=== PATIENT | male | born 1990 | race Caucasian/White ===

== ENCOUNTER 2018-09-24 20:17 | Inpatient (IN) ==
[2018-09-24 20:46] LABS: Basophils % 0.1 %; Eosinophils # 0.2 K/mcL (0.0-0.6); Eosinophils % 3.1 %; Hematocrit 47.1 % (37.5-50.1); Hemoglobin 15.6 g/dL (12.9-16.9); Immature Granulocytes % 0.4 % (0-4); Lymphocytes # 1.3 K/mcL (0.6-4.6); Lymphocytes % 18.4 %; Mean Corpuscular HGB Conc 33.1 g/dL (31.6-35.5); Mean Corpuscular Hemoglobin 32.8 pg (28.0-33.3); Mean Corpuscular Volume 98.9 fL (83.0-100.0); Mean Platelet Volume 10.1 fL (9.4-12.4); Monocytes % 15.2 %; Neutrophils # 4.3 K/mcL (1.6-8.9); Platelet Count 178 K/mcL (140-400); Red Blood Count 4.76 M/mcL (4.19-5.50); Red Cell Distribution Width 12.4 % (11.5-14.5); Segmented Neutrophils % 62.8 %
[2018-09-24 20:59] LABS: Acetaminophen < 10 mcg/mL (10-20); BUN/Creatinine Ratio 19 (6-26); Blood Urea Nitrogen 15 mg/dL (6-20); Calcium 9.5 mg/dL (8.6-10.3); Carbon Dioxide 24 mEq/L (23-29); Chloride 110 mEq/L (98-107); Ethanol < 10 mg/dL (Less than 10); Glucose 91 mg/dL (70-105); Osmolality,Calculated 296 (280-300); Salicylate < 2.5 mg/dL (15.0-30.0); Sodium 143 mEq/L (136-145); eGFR For Non-African Americans > 60 (> 60)
[2018-09-24 21:07] LABS: Bilirubin,Urine Negative (Negative); Blood,Urine Negative (Negative); Clarity,Urine Clear (Clear); Color,Urine Yellow (Yellow); Glucose,Urine (UA) Normal (Normal); Ketones,Urine Negative (Negative); Leukocyte Esterase,Urine Negative (Negative); Nitrite,Urine Negative (Negative); Protein,Urine Negative (Neg-Trace); Specific Gravity,Urine 1.015 (1.010-1.025); Urobilinogen,Urine Normal (Normal)
[2018-09-24 21:17] LABS: Amphetamine Screen,Urine Negative ng/mL (Cutoff=1000); Barbiturate Screen,Urine Negative ng/mL (Cutoff=200); Benzodiazepines Screen,Urine Negative ng/mL (Cutoff=200); Cannabinoid Screen,Urine Negative ng/mL (Cutoff = 50); Cocaine Screen,Urine Negative ng/mL (Cutoff= 300); Opiate Screen,Urine Negative ng/mL (Cutoff=300); Phencyclidine Screen,Urine Negative ng/mL (Cutoff=25)
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
[2018-09-25 01:56] LABS: Alanine Aminotransferase 23 Units/L (7-52); Albumin 4.5 g/dL (3.5-5.7); Alkaline Phosphatase 59 Units/L (34-104); Aspartate Amino Transferase 27 Units/L (13-39); Bilirubin,Direct 0.1 mg/dL (0.0-0.2); Bilirubin,Indirect 0.5 mg/dL (0.0-1.2); Bilirubin,Total 0.6 mg/dL (0.3-1.0); Globulin 2.3 g/dL (2.4-3.5); Total Protein 6.8 g/dL (6.4-8.9); Valproate 108 mcg/mL (50-100)
[2018-09-25] MEDS ORDERED: Lactulose Oral Soln 20 GM/30 ML UDC PO ONE (02:48)
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
[2018-09-25] MEDS ORDERED: Acetaminophen 325 MG TABLET PO PRN (04:49)
[2018-09-25] MEDS ORDERED: Naloxone 0.4 MG/ML INJ IVP PRN (04:49)
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
[2018-09-25] MEDS: 0.9 % Sodium Chloride 1,000 ML IVC SCH ×2 (05:24→14:28)
[2018-09-25 06:23] LABS: Alanine Aminotransferase 22 Units/L (7-52); Albumin 4.4 g/dL (3.5-5.7); Albumin/Globulin Ratio 1.9 (1.1-2.2); Alkaline Phosphatase 65 Units/L (34-104); Aspartate Amino Transferase 26 Units/L (13-39); BUN/Creatinine Ratio 19 (6-26); Bilirubin,Direct 0.2 mg/dL (0.0-0.2); Bilirubin,Indirect 0.6 mg/dL (0.0-1.2); Bilirubin,Total 0.8 mg/dL (0.3-1.0); Blood Urea Nitrogen 13 mg/dL (6-20); Calcium 9.8 mg/dL (8.6-10.3); Carbon Dioxide 25 mEq/L (23-29); Chloride 106 mEq/L (98-107); Globulin 2.3 g/dL (2.4-3.5); Glucose 123 mg/dL (70-105); Osmolality,Calculated 293 (280-300); Potassium 3.2 mEq/L (3.5-5.1); Sodium 141 mEq/L (136-145); Total Protein 6.7 g/dL (6.4-8.9); eGFR For Non-African Americans > 60 (> 60)
[2018-09-25] MEDS ORDERED: 0.9 % Sodium Chloride 1,000 ML IVC ONE (11:40)
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
--- NOTE | 2018-09-25 14:50 | Internal Med Progress Note ---
Hospitalist Progress Note - Encounter Date of Encounter: 09/25/18 Time of Encounter: 10:30 - Subjective Interval History: No acute events. - Exam Vitals: Temp Pulse Resp BP Pulse Ox 97.3 F L 74 15 106/73 96 09/25/18 11:51 09/25/18 11:51 09/25/18 11:51 09/25/18 11:51 09/25/18 11:51 Exam: Gen: NAD, AAO x3, cooperative with exam HEENT: NC/AT, no lymphadenopathy, CN II-XII in tact CVS: RRR Lungs: CTAB Abd: Soft, NT/ND Ext: moves all extremities spontaneously, no edema, no cyanosis. Psych: flat affect - Assessment and Plan (1) Valproic acid toxicity Current Visit: Yes Status: Acute Assessment and Plan: Will hydrate with IVF and recheck level this morning. Valproic acid levels pending, ammonia levels pending. (2) Agitation Current Visit: Yes Status: Acute Assessment and Plan: Continue sitter in room. Psychiatry consulted, recommendations appreciated. (3) DVT prophylaxis Current Visit: Yes Status: Acute Assessment and Plan: EPCD - Time Spent with Patient Total time spent is greater than 50% in coordination of care (as documented) at patient's floor/unit and/or counseling patient: Internal Medicine: Result - Labs CBC & Chem 7: 09/24/18 20:29 09/25/18 05:54 Labs: Short CBC 09/24/18 Range/Units 20:29 WBC 6.8 (4.3-11.1) K/mcL Hgb 15.6 (12.9-16.9) g/dL Hct 47.1 (37.5-50.1) % Plt Count 178 (140-400) K/mcL Neutrophils # 4.3 (1.6-8.9) K/mcL BMP 09/24/18 09/25/18 20:29 05:54 Sodium 143 141 Potassium 4.0 3.2 L Chloride 110 H 106 Carbon Dioxide 24 25 BUN 15 13 Creatinine 0.77 0.68 L Glucose 91 123 H Calcium 9.5 9.8 Liver Function 09/24/18 09/25/18 Range/Units 20:29 05:54 Total Bilirubin 0.6 0.8 (0.3-1.0) mg/dL Direct Bilirubin 0.1 0.2 (0.0-0.2) mg/dL AST 27 26 (13-39) Units/L ALT 23 22 (7-52) Units/L Alkaline Phosphatase 59 65 (34-104) Units/L Albumin 4.5 4.4 (3.5-5.7) g/dL Urine 09/24/18 Range/Units 21:00 Urine Color Yellow (Yellow) Urine Clarity Clear (Clear) Urine pH 7.0 (5.0-8.0) pH Units Ur Specific [place] 1.015 (1.010-1.025) Urine Protein Negative (Neg-Trace) mg/dL Urine Glucose (UA) Normal (Normal) mg/dL - Impressions Impressions Hand X-Ray 09/24/18 20:23 IMPRESSION: 1. No acute fracture of the left or right hand identified. 2. Hyper flexed appearance of the 5th digit at the metacarpophalangeal joint which potentially may be positional. Correlate clinically. D/ / Alfa Merritt MD / Alfa Merritt MD Interpreting Provider: Alfa Merritt MD Hand X-Ray 09/24/18 20:37 IMPRESSION: 1. No acute fracture of the left or right hand identified. 2. Hyper flexed appearance of the 5th digit at the metacarpophalangeal joint which potentially may be positional. Correlate clinically. D/ / Alfa Merritt MD / Alfa Merritt MD Interpreting Provider: Alfa Merritt MD Consult Discharge Plan - Plan Additional Instructions: Once medically stable transfer to In mental health unit for medication titration and follow on care. Referrals: NONE,PCP [Primary Care Provider] - (1) Valproic acid toxicity Qualifiers: Encounter type: initial encounter Injury intent: accidental or unintentional Qualified Code(s): T42.6X1A - Poisoning by other antiepileptic and sedative- hypnotic drugs, accidental (unintentional), initial encounter
[2018-09-26 11:22] LABS: BUN/Creatinine Ratio 20 (6-26); Blood Urea Nitrogen 13 mg/dL (6-20); Calcium 9.3 mg/dL (8.6-10.3); Carbon Dioxide 29 mEq/L (23-29); Chloride 109 mEq/L (98-107); Glucose 93 mg/dL (70-105); Osmolality,Calculated 292 (280-300); Potassium 3.9 mEq/L (3.5-5.1); Sodium 141 mEq/L (136-145); eGFR For Non-African Americans > 60 (> 60)
[2018-09-26] MEDS ORDERED: Acetaminophen 325 MG TABLET PO PRN (11:34)
[2018-09-26] MEDS: Lactulose Oral Soln 20 GM/30 ML UDC PO SCH ×3 (12:05→21:28)
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
[2018-09-26] MEDS: OLANZapine 10 MG TAB.RAPDIS PO SCH (21:28)
[2018-09-26] MEDS: Topiramate 100 MG TABLET PO SCH (21:28)
[2018-09-26] MEDS: ASENAPINE 10 MG SL SCH (21:28)
[2018-09-26] MEDS: traZODone 50 MG TABLET PO SCH (21:28)
[2018-09-27] MEDS: Lactulose Oral Soln 20 GM/30 ML UDC PO SCH ×3 (09:14→21:58)
[2018-09-27] MEDS: Topiramate 100 MG TABLET PO SCH ×2 (09:14→21:58)
[2018-09-27] MEDS: OLANZapine 5 MG TAB.RAPDIS PO SCH (09:14)
[2018-09-27] MEDS: FLUoxetine HCl 10 MG CAPSULE PO SCH (09:14)
[2018-09-27] MEDS ORDERED: Ziprasidone injection 20 MG/ML VIAL IM ONE (09:29)
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
[2018-09-27] MEDS ORDERED: *HR* LORazepam 1 MG TABLET PO PRN (16:46)
[2018-09-27] MEDS ORDERED: *HR* LORazepam 2 MG/ML VIAL ONE (17:58)
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
[2018-09-27] MEDS ORDERED: *HR* LORazepam 2 MG/ML VIAL IM STA (18:08)
[2018-09-27] MEDS ORDERED: *HR* LORazepam 2 MG/ML VIAL IM PRN (18:23)
[2018-09-27] MEDS: ASENAPINE 10 MG SL SCH (21:58)
[2018-09-27] MEDS: OLANZapine 10 MG TAB.RAPDIS PO SCH (21:58)
[2018-09-27] MEDS: traZODone 50 MG TABLET PO SCH (22:52)
[2018-09-28] MEDS: Topiramate 100 MG TABLET PO SCH ×2 (10:02→21:07)
[2018-09-28] MEDS: FLUoxetine HCl 10 MG CAPSULE PO SCH (10:02)
[2018-09-28] MEDS: OLANZapine 5 MG TAB.RAPDIS PO SCH (10:02)
[2018-09-28] MEDS: Lactulose Oral Soln 20 GM/30 ML UDC PO SCH ×3 (10:03→21:07)
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
[2018-09-28 16:13] LABS: Valproate Free <7 ug/mL (7-23); Valproate Total 32 ug/mL (50-125)
[2018-09-28] MEDS: ASENAPINE 10 MG SL SCH (21:06)
[2018-09-28] MEDS: OLANZapine 10 MG TAB.RAPDIS PO SCH (21:07)
[2018-09-28] MEDS: traZODone 50 MG TABLET PO SCH (21:07)
[2018-09-29 04:48] LABS: BUN/Creatinine Ratio 30 (6-26); Blood Urea Nitrogen 21 mg/dL (6-20); Calcium 9.2 mg/dL (8.6-10.3); Carbon Dioxide 21 mEq/L (23-29); Chloride 111 mEq/L (98-107); Glucose 98 mg/dL (70-105); Osmolality,Calculated 295 (280-300); Potassium 3.9 mEq/L (3.5-5.1); Sodium 141 mEq/L (136-145); Valproate 4 mcg/mL (50-100); eGFR For Non-African Americans > 60 (> 60)
[2018-09-29] MEDS: Lactulose Oral Soln 20 GM/30 ML UDC PO SCH ×3 (08:32→20:30)
[2018-09-29] MEDS: Topiramate 100 MG TABLET PO SCH ×2 (08:33→20:30)
[2018-09-29] MEDS: OLANZapine 5 MG TAB.RAPDIS PO SCH (08:33)
[2018-09-29] MEDS: FLUoxetine HCl 10 MG CAPSULE PO SCH (08:33)
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
[2018-09-29 16:42] LABS: Valproate Free 11 ug/mL (7-23); Valproate Total 78 ug/mL (50-125)
[2018-09-29] MEDS: traZODone 50 MG TABLET PO SCH (20:29)
[2018-09-29] MEDS: OLANZapine 10 MG TAB.RAPDIS PO SCH (20:29)
[2018-09-29] MEDS: ASENAPINE 10 MG SL SCH (20:30)
[2018-09-30] MEDS: OLANZapine 5 MG TAB.RAPDIS PO SCH (08:15)
[2018-09-30] MEDS: FLUoxetine HCl 10 MG CAPSULE PO SCH (08:15)
[2018-09-30] MEDS: Lactulose Oral Soln 20 GM/30 ML UDC PO SCH ×3 (08:16→20:01)
[2018-09-30] MEDS: Topiramate 100 MG TABLET PO SCH ×2 (08:16→20:01)
[2018-09-30 10:28] LABS: Valproate % Free 14 % (5-18)
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
[2018-09-30] MEDS ORDERED: *HR* LORazepam 1 MG TABLET PO PRN (14:46)
[2018-09-30] MEDS: Divalproex (12 HR) 250 MG TABLET PO SCH ×2 (15:31→20:01)
[2018-09-30] MEDS: OLANZapine 10 MG TAB.RAPDIS PO SCH (20:01)
[2018-09-30] MEDS: traZODone 50 MG TABLET PO SCH (20:01)
[2018-09-30] MEDS ORDERED: ASENAPINE 10 MG SL SCH (21:00)
[2018-10-01] MEDS: OLANZapine 5 MG TAB.RAPDIS PO SCH (08:29)
[2018-10-01] MEDS: Lactulose Oral Soln 20 GM/30 ML UDC PO SCH ×3 (08:29→21:40)
[2018-10-01] MEDS: Divalproex (12 HR) 250 MG TABLET PO SCH ×2 (08:29→21:39)
[2018-10-01] MEDS: FLUoxetine HCl 10 MG CAPSULE PO SCH (08:29)
[2018-10-01] MEDS: Topiramate 100 MG TABLET PO SCH ×2 (08:29→21:39)
--- NOTE | 2018-10-01 15:09 | Internal Med Progress Note ---
Hospitalist Progress Note - Encounter Date of Encounter: 10/01/18 Time of Encounter: 13:05 - Subjective Interval History: Patient seen and examined at bedside. No acute overnight events. Denies any new complaint. Denies any headache, tingling or numbness. Pleasant demeanor. - Exam Vitals: Temp Pulse Resp BP Pulse Ox 97.5 F L 82 16 125/80 96 10/01/18 11:53 10/01/18 11:53 10/01/18 11:53 10/01/18 11:53 10/01/18 11:53 Exam: General: In no acute distress. Conversant. Respiratory exam: CTAB. no accessory muscle use, rales, rhonchi, wheezes Cardiovascular exam: RRR, +S1, +S2. no murmur, gallop, rubs. GI/Abdominal exam: Non-tender, Non-distended, normal bowel sounds, soft, no peritoneal signs. Extremities exam: full ROM, no pedal edema, warm, pulses palpable in b/l lower extremities. no calf tenderness Neurological exam: Cranial nerve grossly intact, chronic Lt eye abnormality, AO X3, no pronater drift, facial droop, speech deficit Skin exam: No skin rash, ulcer, purpura or ecchymosis. Psych: Pleasent - Assessment and Plan (1) Agitation Current Visit: Yes Status: Acute (2) Valproic acid toxicity Current Visit: Yes Status: Acute (3) Increased ammonia level Current Visit: Yes Status: Acute (4) DVT prophylaxis Current Visit: Yes Status: Acute (5) Mood disorder Current Visit: Yes Status: Acute - Summary of Assessment and Plan Summary of Assessment and Plan: Mood disorder - In pleasant mood - Denies any suicidal ideation - resumed on low dose depakote at 250 BID - [facility] stated he is not appropriate for their facility since he does not have any active acute psychosis - [facility] Wednesday since they would like to start him on Depakote at low dose and monitor his levels here Valproic acid toxicity - Psych agree with starting at low dose Depakote. Patient on Depakote through his life as a mood stabilizer - Monitor for toxicity. Currently with stable vitals. No myoclonus or tremors Increased ammonia level - Possibly due to Valproic acid toxicity - Improving. - Ammonia level 65 2 days ago - c/w continue lactulose 10 gm BID until he has at least 2 to 3 soft BM's - monitor bmp, calcium, ammonia and valproate levels as started on depakote Agitation - Continue sitter in room - currently pleasent DVT prophylaxis - low risk - early ambulation Internal Medicine: Result - Labs CBC & Chem 7: 09/24/18 20:29 09/29/18 04:02 Consult Discharge Plan - Plan Additional Instructions: Patient's ammonia level needs to come down and then reassessed for behavioral condition. Patient has been violent prior to this admit. Will need to get more info. At this meeting with patient Mother provided history included in HPI. Patient needs placement in at a level of care that is above 1A, [facility] SW from both services working on a placement. Referrals: NONE,PCP [Primary Care Provider] - (2) Valproic acid toxicity Qualifiers: Encounter type: initial encounter Injury intent: accidental or unintentional Qualified Code(s): T42.6X1A - Poisoning by other antiepileptic and sedative- hypnotic drugs, accidental (unintentional), initial encounter
[2018-10-01] MEDS: OLANZapine 10 MG TAB.RAPDIS PO SCH (21:39)
[2018-10-01] MEDS: ASENAPINE 10 MG SL SCH (21:39)
[2018-10-01] MEDS: traZODone 50 MG TABLET PO SCH (21:39)
[2018-10-02 04:56] LABS: Alanine Aminotransferase 47 Units/L (7-52); Albumin 4.1 g/dL (3.5-5.7); Alkaline Phosphatase 59 Units/L (34-104); Aspartate Amino Transferase 27 Units/L (13-39); BUN/Creatinine Ratio 19 (6-26); Bilirubin,Total 0.5 mg/dL (0.3-1.0); Blood Urea Nitrogen 15 mg/dL (6-20); Calcium 9.1 mg/dL (8.6-10.3); Carbon Dioxide 24 mEq/L (23-29); Chloride 112 mEq/L (98-107); Globulin 2.1 g/dL (2.4-3.5); Glucose 93 mg/dL (70-105); Osmolality,Calculated 295 (280-300); Potassium 3.4 mEq/L (3.5-5.1); Sodium 142 mEq/L (136-145); Total Protein 6.2 g/dL (6.4-8.9); Valproate 34 mcg/mL (50-100); eGFR For Non-African Americans > 60 (> 60)
[2018-10-02] MEDS: Topiramate 100 MG TABLET PO SCH ×2 (09:12→21:40)
[2018-10-02] MEDS: FLUoxetine HCl 10 MG CAPSULE PO SCH (09:12)
[2018-10-02] MEDS: OLANZapine 5 MG TAB.RAPDIS PO SCH (09:12)
[2018-10-02] MEDS: Divalproex (12 HR) 250 MG TABLET PO SCH (09:12)
[2018-10-02] MEDS: Lactulose Oral Soln 20 GM/30 ML UDC PO SCH ×3 (09:13→21:40)
--- NOTE | 2018-10-02 13:59 | Internal Med Progress Note ---
Hospitalist Progress Note - Encounter Date of Encounter: 10/02/18 Time of Encounter: 13:17 - Subjective Interval History: Patient seen and examined at bedside. No acute overnight events. Denies any new complaint. No fever, chills, N/V/D. Denies any headache, tingling or numbness. Pleasant demeanor. - Exam Vitals: Temp Pulse Resp BP Pulse Ox 97.4 F L 88 16 112/86 96 10/02/18 11:51 10/02/18 11:51 10/02/18 11:51 10/02/18 11:51 10/02/18 11:51 Exam: General: In no acute distress. Conversant. Respiratory exam: CTAB. no accessory muscle use, rales, rhonchi, wheezes Cardiovascular exam: RRR, +S1, +S2. no murmur, gallop, rubs. GI/Abdominal exam: Non-tender, Non-distended, normal bowel sounds, soft, no peritoneal signs. Extremities exam: full ROM, no pedal edema, warm, pulses palpable in b/l lower extremities. no calf tenderness Neurological exam: Cranial nerve grossly intact, chronic Lt eye abnormality, AO X3, no pronater drift, facial droop, speech deficit Skin exam: No skin rash, ulcer, purpura or ecchymosis. Psych: Pleasent - Assessment and Plan (1) Agitation Current Visit: Yes Status: Acute (2) Valproic acid toxicity Current Visit: Yes Status: Acute (3) Increased ammonia level Current Visit: Yes Status: Acute (4) DVT prophylaxis Current Visit: Yes Status: Acute (5) Mood disorder Current Visit: Yes Status: Acute - Summary of Assessment and Plan Summary of Assessment and Plan: Mood disorder - In pleasant mood - Denies any suicidal ideation - resumed on low dose depakote at 250 BID. Valproic acid level still low. - state psych facility stated he is not appropriate for their facility since he does not have any active acute psychosis - [facility] to [facility] home on wed[facility] however care home do not want to take him back till Wednesday since they would like to start him on Depakote at low dose and monitor his levels here. elevated valproic acid - Psych agree with starting at low dose Depakote. Patient on Depakote through his life as a mood stabilizer - Monitor for toxicity. Currently with stable vitals. No myoclonus or tremors. Does not appear to have any signs of valproic acid toxicity - c/w low dose valproic acid Increased ammonia level - Possibly due to Valproic acid. However no signs of encephelopathy. - Trended up today. However does not appear to have hyperammonemic encephalopathy related to valproic acid. - c/w continue lactulose 10 gm BID until he has at least 2 to 3 soft BM's - monitor valproic acid level Agitation - Continue sitter in room - currently pleasent and cooperative. DVT prophylaxis - low risk - early ambulation - Time Spent with Patient Total time spent is greater than 50% in coordination of care (as documented) at patient's floor/unit and/or counseling patient: Internal Medicine: Result - Labs CBC & Chem 7: 09/24/18 20:29 10/02/18 04:19 Labs: BMP 10/02/18 04:19 Sodium 142 Potassium 3.4 L Chloride 112 H Carbon Dioxide 24 BUN 15 Creatinine 0.78 Glucose 93 Calcium 9.1 Liver Function 10/02/18 Range/Units 04:19 Total Bilirubin 0.5 (0.3-1.0) mg/dL AST 27 (13-39) Units/L ALT 47 (7-52) Units/L Alkaline Phosphatase 59 (34-104) Units/L Albumin 4.1 (3.5-5.7) g/dL Consult Discharge Plan - Plan Additional Instructions: Patient's ammonia level needs to come down and then reassessed for behavioral condition. Patient has been violent prior to this admit. Will need to get more info. At this meeting with patient Mother provided history included in HPI. Patient needs placement in at a level of care that is above 1A, but not as restrictive as the [facility] if there is such a facility in the [facility]. SW from both services working on a placement. Referrals: NONE,PCP [Primary Care Provider] - (2) Valproic acid toxicity Qualifiers: Encounter type: initial encounter Injury intent: accidental or unintentional Qualified Code(s): T42.6X1A - Poisoning by other antiepileptic and sedative- hypnotic drugs, accidental (unintentional), initial encounter
--- NOTE | 2018-10-02 16:23 | Consult Note ---
Date of Encounter: 10/02/18 Time of Encounter: 14:30 Assessment & Recommendation (1) Valproic acid toxicity Current visit: Yes Status: Resolved Qualifiers: Encounter type: subsequent encounter Injury intent: accidental or unintentional Qualified Code(s): T42.6X1D - Poisoning by other antiepileptic and sedative-hypnotic drugs, accidental (unintentional), subsequent encounter (2) Increased ammonia level Current visit: Yes Status: Acute (3) Mood disorder Current visit: Yes Status: Acute (4) Delayed social and emotional development Current visit: Yes Status: Acute History of Present Illness Patient: known to practice within the last 3 years Requesting Physician: Alma Delia Kelley MD Reason for consult: I like to work History of present illness: Mr. Puentes is a 27 year old male Chief complaint I like to work. History of present illness: The patient was seen by our service. He was known to have ammonia elevation. Depakote was stopped and the patient was placed on lactulose. Depakote was restarted lower dose but ammonia kathe to 80 a period The patient reports that he is doing well and wants to return home. But some small changes in behavior noted and his mother is guardian and next of kin is concerned about this CC: Alma Delia Kelley MD Past Med Surg Social Fam HX - Past Medical History Medical history: no medical history, other - Past Psychiatric History Psychiatric history: Reports: bipolar Family psychiatric history: Unknown Family History of Suicide: Unknown - Social History Smoking Status: Never smoker Smokeless Tobacco Status: No Alcohol use: none Drug use: none Occupational status: disabled, other Current living situation: Prison Activity Level: Independent ambulation Recent Out of Country Travel Within the Last 8 Weeks: No Exposure or Possible Exposure to Illness During Travel: No - Family History Mother History Unknown: Yes Living Status: Still Living Medications & Allergies Acetaminophen [Tylenol] 650 mg PO Q4HR PRN 09/25/18 [History] Asenapine Maleate [Saphris] 10 mg SL HS 09/25/18 [History] Atorvastatin Calcium [Lipitor] 20 mg PO HS 09/25/18 [History] Benztropine [Cogentin] 1 mg PO DAILY 09/25/18 [History] Citalopram [CeleXA] 20 mg PO QAM 09/25/18 [History] Divalproex (24 HR) [Depakote ER (24 HR)] 1,000 mg PO BID 09/25/18 [History] Docusate [Colace] 100 mg PO DAILY 09/25/18 [History] FLUoxetine HCl [Prozac] 10 mg PO DAILY 09/25/18 [History] Loperamide [Imodium] 4 mg PO AD PRN 09/25/18 [History] Magnesium Hydroxide [Milk of Magnesia] 30 ml PO DAILY PRN 09/25/18 [History] OLANZapine [Zyprexa] 5 mg PO QAM 09/25/18 [History] OLANZapine [Zyprexa] 10 mg PO HS 09/25/18 [History] Petrolatum,White [Hydrophor] 454 gm TP BID 09/25/18 [History] Propylene Glycol/Peg 400 [Systane Gel Eye Drops] 1 drop OP TID 09/25/18 [History] Topiramate [Topamax] 100 mg PO BID 09/25/18 [History] traZODone [TraZODone] 50 mg PO HS 09/25/18 [History] Ibuprofen [Advil] 400 mg PO Q8HR PRN #0 09/26/18 [Rx] Lactulose 10 gm PO BID udc 09/26/18 [Rx] Allergy/AdvReac Type Severity Reaction Status Date / Time No Known Allergies Allergy Verified 04/13/18 21:42 Review of Systems Psychiatric: Reports: anxiety Psychiatry Exam - Constitutional Vitals: Temp Pulse Resp BP Pulse Ox 97.5 F L 87 16 110/78 95 10/02/18 15:44 10/02/18 15:44 10/02/18 15:44 10/02/18 15:44 10/02/18 15:44 General appearance: thin - Musculoskeletal Gait: brisk Station: stooped Strength & Tone: other - Psychiatric Patient Orientation: Yes Person, Yes Time Level of alertness: Alert Behavior: nervous Psychomotor activity: Increased Eye Contact: Maintains Eye Contact Mood Description: Anxious Affect description: congruent with mood Speech Volume: Loud Speech pattern: normal rate Language & Vocabulary: grade school level, difficulty finding words Thought Process: Logical Thought Content: Yes Intact Perceptual Disturbances: Yes Reacting to internal stimuli Attention Span Ability: Unable to Sustain Attention Patient Reliability: Not Reliable Historian Fund of knowledge: Yes below average Intelligence Estimate: Below Average Judgment: Poor Insight: None Results - Labs Labs: Laboratory Last Values WBC 6.8 K/mcL (4.3-11.1) 09/24/18 20: RBC 4.76 M/mcL (4.19-5.50) 09/24/18 20:29 Hgb 15.6 g/dL (12.9-16.9) 09/24/18 20: Hct 47.1 % (37.5-50.1) 09/24/18 20: MCV 98.9 fL (83.0-100.0) 09/24/18 20: MCH 32.8 pg (28.0-33.3) 09/24/18 20: MCHC 33.1 g/dL (31.6-35.5) 09/24/18 20: RDW 12.4 % (11.5-14.5) 09/24/18 20: Plt Count 178 K/mcL (140-400) 09/24/18 20: MPV 10.1 fL (9.4-12.4) 09/24/18 20: Immature Gran % 0.4 % (0-4) 09/24/18 20: Seg Neutrophils % 62.8 % 09/24/18 20: Lymphocytes % 18.4 % 09/24/18 20: Monocytes % 15.2 % 09/24/18 20: Eosinophils % 3.1 % 09/24/18 20: Basophils % 0.1 % 09/24/18 20:29 Neutrophils # 4.3 K/mcL (1.6-8.9) 09/24/18 20: Lymphocytes # 1.3 K/mcL (0.6-4.6) 09/24/18 20: Monocytes # 1.0 K/mcL (0.0-1.3) 09/24/18 20: Eosinophils # 0.2 K/mcL (0.0-0.6) 09/24/18 20: Basophils # 0.0 K/mcL (0.0-0.2) 09/24/18 20:29 Sodium 142 mEq/L (136-145) 10/02/18 04:19 Potassium 3.4 mEq/L (3.5-5.1) L 10/02/18 04:19 Chloride 112 mEq/L (98-107) H 10/02/18 04:19 Carbon Dioxide 24 mEq/L (23-29) 10/02/18 04:19 BUN 15 mg/dL (6-20) 10/02/18 04:19 Creatinine 0.78 mg/dL (0.70-1.30) 10/02/18 04:19 Est GFR ( Amer) > 60 (> 60) 10/02/18 04:19 Est GFR (Non-Af Amer) > 60 (> 60) 10/02/18 04:19 BUN/Creatinine Ratio 19 (6-26) 10/02/18 04:19 Glucose 93 mg/dL (70-105) 10/02/18 04:19 Calculated Osmolality 295 (280-300) 10/02/18 04:19 Calcium 9.1 mg/dL (8.6-10.3) 10/02/18 04:19 Magnesium 2.0 mg/dL (1.6-2.6) 09/25/18 05:54 Total Bilirubin 0.5 mg/dL (0.3-1.0) 10/02/18 04:19 Direct Bilirubin 0.2 mg/dL (0.0-0.2) 09/25/18 05:54 Indirect Bilirubin 0.6 mg/dL (0.0-1.2) 09/25/18 05:54 AST 27 Units/L (13-39) 10/02/18 04:19 ALT 47 Units/L (7-52) 10/02/18 04:19 Alkaline Phosphatase 59 Units/L (34-104) 10/02/18 04:19 Ammonia 88 mcmol/L (16-53) H 10/02/18 04:19 Serum Total Protein 6.2 g/dL (6.4-8.9) L 10/02/18 04:19 Albumin 4.1 g/dL (3.5-5.7) 10/02/18 04:19 Globulin 2.1 g/dL (2.4-3.5) L 10/02/18 04:19 Albumin/Globulin Ratio 2.0 (1.1-2.2) 10/02/18 04:19 Urine Color Yellow (Yellow) 09/24/18 21:00 Urine Clarity Clear (Clear) 09/24/18 21:00 Urine pH 7.0 pH Units (5.0-8.0) 09/24/18 21:00 Ur Specific [place] 1.015 (1.010-1.025) 09/24/18 21:00 Urine Protein Negative mg/dL (Neg-Trace) 09/24/18 21:00 Urine Glucose (UA) Normal mg/dL (Normal) 09/24/18 21:00 Urine Ketones Negative mg/dL (Negative) 09/24/18 21:00 Urine Blood Negative (Negative) 09/24/18 21:00 Urine Nitrite Negative (Negative) 09/24/18 21:00 Urine Bilirubin Negative (Negative) 09/24/18 21:00 Urine Urobilinogen Normal mg/dL (Normal) 09/24/18 21:00 Ur Leukocyte Esterase Negative (Negative) 09/24/18 21:00 Salicylates < 2.5 mg/dL (15.0-30.0) L 09/24/18 20:29 Urine Opiates Screen Negative ng/mL (Tkgyky=717) 09/24/18 21:00 Acetaminophen < 10 mcg/mL (10-20) L 09/24/18 20:29 Ur Barbiturates Screen Negative ng/mL (Uqyvxl=486) 09/24/18 21:00 Valproic Acid 34 mcg/mL (50-100) L 10/02/18 04:19 Free Valproic Acid <7 ug/mL (7-23) L 09/26/18 10:52 Total Valproic Acid 32 ug/mL (50-125) L 09/26/18 10:52 % Free Valproic Acid NOT APPLICABLE % (5-18) 09/26/18 10:52 Ur Phencyclidine Scrn Negative ng/mL (Cutoff=25) 09/24/18 21:00 Ur Amphetamines Screen Negative ng/mL (Ogds[place]=2463) 09/24/18 21:00 U Benzodiazepines Scrn Negative ng/mL (Olffic=785) 09/24/18 21:00 Urine Cocaine Screen Negative ng/mL (Cutoff= 300) 09/24/18 21:00 U Marijuana (THC) Screen Negative ng/mL (Cutoff = 50) 09/24/18 21:00 Ur Drug Screen Interp See Below 09/24/18 21:00 Ethyl Alcohol < 10 mg/dL (Less than 10) 09/24/18 20:29 Consult Discharge Plan - Plan Additional Instructions: Patient's ammonia level needs to come down and then reassessed for behavioral condition. Patient has been violent prior to this admit. Will need to get more info. At this meeting with patient Mother provided history included in HPI. Patient n eeds placement in at a level of care that is above 1A, but not as restrictive as the [facility] if there is such a facility in the state. SW from both services working on a placement. Referrals: NONE,PCP [Primary Care Provider] -
[2018-10-02] MEDS: carBAMazepine 200 MG TABLET PO SCH (21:40)
[2018-10-02] MEDS: OLANZapine 10 MG TAB.RAPDIS PO SCH (21:40)
[2018-10-02] MEDS: traZODone 50 MG TABLET PO SCH (21:41)
[2018-10-02] MEDS: ASENAPINE 10 MG SL SCH (21:41)
[2018-10-03] MEDS: Lactulose Oral Soln 20 GM/30 ML UDC PO SCH ×3 (09:00→20:02)
[2018-10-03] MEDS: Topiramate 100 MG TABLET PO SCH ×2 (09:00→20:01)
[2018-10-03] MEDS: FLUoxetine HCl 10 MG CAPSULE PO SCH (09:00)
[2018-10-03] MEDS: OLANZapine 5 MG TAB.RAPDIS PO SCH (09:01)
[2018-10-03] MEDS: carBAMazepine 200 MG TABLET PO SCH ×2 (09:01→20:02)
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
[2018-10-03] MEDS: OLANZapine 10 MG TAB.RAPDIS PO SCH (20:01)
[2018-10-03] MEDS: traZODone 50 MG TABLET PO SCH (20:02)
[2018-10-03] MEDS: ASENAPINE 10 MG SL SCH (20:22)
[2018-10-04] MEDS: OLANZapine 5 MG TAB.RAPDIS PO SCH (08:21)
[2018-10-04] MEDS: Lactulose Oral Soln 20 GM/30 ML UDC PO SCH ×3 (08:21→21:13)
[2018-10-04] MEDS: FLUoxetine HCl 10 MG CAPSULE PO SCH (08:21)
[2018-10-04] MEDS: Topiramate 100 MG TABLET PO SCH ×2 (08:21→21:12)
[2018-10-04] MEDS: carBAMazepine 200 MG TABLET PO SCH ×2 (08:21→21:12)
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
[2018-10-04] MEDS: OLANZapine 10 MG TAB.RAPDIS PO SCH (21:12)
[2018-10-04] MEDS: traZODone 50 MG TABLET PO SCH (21:12)
[2018-10-04] MEDS ORDERED: ASENAPINE 10 MG SL SCH (21:15)
[2018-10-04] MEDS: ASENAPINE 10 MG SL SCH (21:30)
[2018-10-05 06:59] VITALS: BP 107/71
[2018-10-05] MEDS: Topiramate 100 MG TABLET PO SCH (09:44)
[2018-10-05] MEDS: OLANZapine 5 MG TAB.RAPDIS PO SCH (09:44)
[2018-10-05] MEDS: Lactulose Oral Soln 20 GM/30 ML UDC PO SCH (09:44)
[2018-10-05] MEDS: FLUoxetine HCl 10 MG CAPSULE PO SCH (09:44)
[2018-10-05] MEDS: carBAMazepine 200 MG TABLET PO SCH (09:44)
--- NOTE | 2018-10-05 15:36 | Event Note ---
Date of Encounter: 10/05/18 Time of Encounter: 09:00 Patient was seen and examined. Feels fine. Denies confusion. Oriented 3. Vitals are stable. Ammonia level trend down. Will discharge back to group living today. Discharge summary updated.
== END 2018-10-05 12:26 | disposition other institution (70) | DRG 812 ==
LOC: 3BNU 20:17 → EMEROOARM 20:17 → SUATTDRO 09-25 03:34 → 3BNU 09-25 04:30 → SUATTDRO 09-28 14:11
PROVIDERS: ADMIT Internal Medicine; ATTEND Internal Medicine